=== PATIENT | male | born 1995 | race Caucasian/White ===

== ENCOUNTER 2017-12-10 10:15 | Emergency (ER) | payer OTHER ==
[2017-12-10 10:40] VITALS: BP 108/67
[2017-12-10] MEDS ORDERED: Tetan/Diph/Pertus SYR(Tdap)* 0.5 ML SYR(BOOSTRIX) use SYR IM ONE (10:57)
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
== END 2017-12-10 11:47 | disposition home or self-care (01) ==
LOC: UCEAST 10:15
DX: M25.521 Pain in right elbow (principal); M25.561 Pain in right knee; S50.811A Abrasion of right forearm, initial encounter; V43.52XA Car driver injured in collision with other type car in traffic accident, initial encounter; Y93.89 Activity, other specified; Y92.410 Unspecified street and highway as the place of occurrence of the external cause; Z23 Encounter for immunization; F17.210 Nicotine dependence, cigarettes, uncomplicated
CPT/HCPCS: 90471; 90715; 99212; G0463

== ENCOUNTER 2018-09-20 18:32 | Emergency (ER) | payer OTHER ==
[2018-09-20 19:09] LABS: ABS Basophils 0.1 10^3/ul (0-0.2); ABS Eosinophils 0.3 10^3/ul (0-0.6); ABS Lymphocytes 2.2 10^3/ul (1.0-4.8); ABS Monocytes 0.7 10^3/ul (0-0.8); ABS Neutrophils 4.5 10^3/ul (1.5-7.7); Eosinophil % 3.3 %; Hematocrit 45 % (42-52); Hemoglobin 15.6 g/dL (14.0-18.0); Lymphocyte % 28.2 %; Mean Corpuscular HGB Conc 35 g/dL (31-36); Mean Corpuscular Hemoglobin 30 pg (27-31); Mean Corpuscular Volume 87 fL (80-94); Mean Platelet Volume 9.4 fL (7.4-10.4); Nucleated Red Blood Cells % 0.1; Platelet Count 160 10^3/uL (150-450); Red Blood Count 5.15 10^6 /uL (4.18-5.48); Red Cell Distribution Width 13 % (10-15); White Blood Count 7.8 10^3/uL (3.5-10.8)
[2018-09-20 19:18] LABS: INR 1.09 (0.82-1.09)
[2018-09-20 19:26] LABS: Albumin 4.8 g/dL (3.2-5.2); Albumin/Globulin Ratio 1.7 (1-3); BUN/Creatinine Ratio 11.6 (8-20); Calcium 9.7 mg/dL (8.6-10.3); EGFR African American 96.7 (>60); EGFR Non-African American 79.9 (>60); Globulin 2.9 g/dL (2-4); Potassium 4.3 mmol/L (3.5-5.0); Total Bilirubin 1.2 mg/dL (0.2-1.0); Total Protein 7.7 g/dL (6.4-8.9)
[2018-09-20 20:05] VITALS: BP 130/67
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
== END 2018-09-20 20:04 | disposition home or self-care (01) ==
LOC: ED 18:32
DX: T75.4XXA Electrocution, initial encounter (principal); T23.002A Burn of unspecified degree of left hand, unspecified site, initial encounter; W86.1XXA Exposure to industrial wiring, appliances and electrical machinery, initial encounter; Y92.9 Unspecified place or not applicable; F17.210 Nicotine dependence, cigarettes, uncomplicated
CPT/HCPCS: 36415; 80053; 84484; 85025; 85610; 93005; 99282